=== PATIENT | female | born 1965 | race Caucasian/White ===

== ENCOUNTER 2018-01-29 17:32 | Outpatient (REF) | payer BC, SELFPAY ==
[2018-01-29 22:49] LABS: Absolute Basophil Count 0.03 k/cumm (0.0-0.2); Absolute Eosinophil Count 0.08 k/cumm (0.0-0.7); Absolute Lymphocyte Count 1.62 k/cumm (1.2-3.4); Absolute Monocyte Count 0.41 k/cumm (0.11-0.7); Absolute Neutrophil Count 2.83 k/cumm (1.2-6.7); Basophils % 0.6; Eosinophils % 1.6; HCT 40.7 % (36.0-46.0); HGB 13.8 g/dL (12.0-15.5); Lymphocytes % 32.6; Mean Corp. HGB Concentration 33.9 g/dL (32.0-36.0); Mean Corpuscular Hemoglobin 30.1 pg (27.0-33.0); Mean Corpuscular Volume 88.9 fL (80-95); Mean Platelet Volume 10.7 fL (8.0-11.0); Monocytes % 8.2; Platelet Count 306 x1000/uL (130-400); RBC 4.58 m/cumm (4.00-5.20); RBC Distribution Width 12.2 % (11.7-14.6); White Blood Cell Count 4.97 k/cumm (4.4-10.8)
[2018-01-29 23:02] LABS: ALT 29 U/L (12-78); AST 20 U/L (15-37); Albumin 4.3 g/dL (3.4-5.0); Alkaline Phosphatase 64 U/L (46-116); Anion Gap 8.5 mmol/L (3-11); BUN 15 mg/dL (7-18); Bilirubin, Total 0.4 mg/dL (0.2-1.0); CO2 26.5 mmol/L (21.0-32.0); CREATININE 0.73 mg/dL (0.55-1.02); Calcium 10.2 mg/dL (8.5-10.1); Chloride 103 mmol/L (98-107); Cholesterol 243 mg/dL (50-200); Glucose 83 mg/dL (70-100); HDL Cholesterol 62 mg/dL (40-60); LDL CHOLESTEROL 168 mg/dL (<100); Potassium 3.9 mmol/L (3.5-5.1); Sodium 138 mmol/L (136-145); TSH 1.52 uIU/mL (0.358-3.74); Total Protein 7.3 g/dL (6.4-8.2); Triglyceride 135 mg/dL (30-150)
== END 2018-01-29 17:52 ==
LOC: NCHCN 17:32
PROVIDERS: PCP Family Medicine; Visit Provider Family Medicine
DX: Z00.00 Encounter for general adult medical examination without abnormal findings (principal); R63.5 Abnormal weight gain; M54.2 Cervicalgia; E66.9 Obesity, unspecified
CPT/HCPCS: 80053; 80061; 83721; 84443; 85025

== ENCOUNTER 2020-05-21 14:47 | Outpatient (REF) | payer BC, SELFPAY ==
[2020-05-21 14:54] LABS: Hemoglobin A1C 5.3 % (<5.7)
[2020-05-21 15:14] LABS: Anion Gap 9.6 mmol/L (3-11); BUN 13 mg/dL (7-18); CO2 27.4 mmol/L (21.0-32.0); CREATININE 0.8 mg/dL (0.55-1.02); Calcium 10.7 mg/dL (8.5-10.1); Calculated LDL 174 mg/dL (<100); Chloride 103 mmol/L (98-107); Cholesterol 270 mg/dL (<200); Glucose 83 mg/dL (74-106); HDL Cholesterol 70 mg/dL (40-60); Potassium 4.4 mmol/L (3.5-5.1); Sodium 140 mmol/L (136-145); TSH (W/Ref FT4) 2.26 uIU/mL (0.36-3.74); Triglyceride 131 mg/dL (<150)
== END 2020-05-21 14:48 | disposition home or self-care (01) ==
LOC: NCHCN 14:47
PROVIDERS: PCP Family Medicine; Visit Provider Family Medicine
DX: Z00.00 Encounter for general adult medical examination without abnormal findings (principal); E78.5 Hyperlipidemia, unspecified; E04.2 Nontoxic multinodular goiter; E66.9 Obesity, unspecified
CPT/HCPCS: 80048; 80061; 83036; 84443

== ENCOUNTER 2020-06-01 14:49 | Outpatient (REF) | payer BC, SELFPAY ==
[2020-06-01 13:56] LABS: ALT 28 U/L (14-59); AST 15 U/L (15-37); Albumin 4.2 g/dL (3.4-5.0); Alkaline Phosphatase 75 U/L (46-116); Anion Gap 11.1 mmol/L (3-11); BUN 14 mg/dL (7-18); Bilirubin, Total 0.3 mg/dL (0.2-1.0); CO2 25.9 mmol/L (21.0-32.0); CREATININE 0.7 mg/dL (0.55-1.02); Calcium 10.6 mg/dL (8.5-10.1); Chloride 104 mmol/L (98-107); Glucose 86 mg/dL (74-106); Potassium 4.6 mmol/L (3.5-5.1); Sodium 141 mmol/L (136-145); Total Protein 7.4 g/dL (6.4-8.2)
--- OUTSIDE RECORDS SUMMARY | 2020-06-01 14:51 | XMS_ITS ---
:1965 Author Organization [facility] Address [address] [place] [address], [address] [place] [address] Care Team Providers Name Role Phone Shantell White Unavailable Unavailable PROBLEMS Type Condition ICD9-CM Code [id number] Onset Condition SNOMED Code Code Dates Status Problem Menorrhagia 626.2 Active 10471914 8 Problem Other and 272.4 Active 25534239 unspecified hyperlipidemia Problem Fibroid - 218.9 Active 77338076 unspecified ALLERGIES Substance Reaction Event Type Date Status almonds tingling mouth Non Drug Allergy Mar, Active ENCOUNTERS Encounter Location Date Diagnosis [facility] [address] [place] [address], [address], Gran ulation tissue [address] [place] [address] [facility] [address] [place] [address], [address] [place] [address] [facility] [address] [place] [address], [address] [place] [address] [facility] [address] [place] [address], [address] [place] [address] [facility] [address] [place] [address], [address] [place] [address] [facility] [address] [place] [address], [address], Vagi nal lesion - [address] [place] unspecif ied 623.8 [address] [facility] [address] [place] [address], [address] [place] [address] [facility] [address] [place] [address], [address] [place] [address] [facility] [address] [place] [address], [address] [place] [address] [facility] [address] [place] [address], [address], Othe r and unspecified [address] [place], [place] ovarian cyst 620.2 and [address] Urinary tract in fection, site not specifi ed 599.0 [facility] [address] [place] [address], [address], [address] [place] [address] [facility] [address] [place] [address], [address], Dysu evert 788.1 ; Pelvic pain [address] [place], [place] 625.9 an d Functional cyst [address] 620.2 [facility] [address] [place] [address], [address], [address] [place] [address] [facility] [address] [place] [address], [address] [place] [address] [facility] [address] [place] [address], [address] [place] [address] [facility] [address] [place] [address], [address] [place] [address] [facility] [address] [place] [address], [address] [place] [address] [facility] [address] [place] [address], [address] [place] [address] [facility] [address] [place] [address], [address] [place] [address] [facility] [address] [place] [address], [address] [place] [address] [facility] [address] [place] [address], [address], [address] [place] [address] [facility] [address] [place] [address], [address], [address] [place] [address] [facility] [address] [place] [address], [address], [address] [place] [address] [facility] [address], [place] [address] [facility] [address] [place] [address], [address], Pre- op exam v72.84 ; [address] [place], [place] Fibroid - unspecified 218.9 [address] and Menorrhagia 626.2 [facility] [address] [facility], [address], [address] [place] [address] [facility] [address] [facility], [address] [place] [id number] [facility] [address] [place] [address], [address] [place] [address] [facility] [address] [facility], [address], [address] [place] [address] [facility] [address] [facility], [address], Fibr oid - unspecified 218.9 [address] [place] [address] IMMUNIZATIONS No Known Immunizations SOCIAL HISTORY Qualifiers Date Never Smoker REASON FOR REFERRAL FUNCTIONAL STATUS PLAN OF CARE VITAL SIGNS Temperature 99.4 degrees Fahrenheit 2011-07-04 Height 62.5 in 2011-04-20 Weight 163 lbs 2011-04-20 BMI 29.33 kg/m2 2011-04-20 Blood pressure systolic 120 2012-04-03 Blood pressure diastolic 78 2012-04-03 MEDICATIONS No Known Medications PROCEDURES Procedure Date Ordered Result Body Site Specimen Handling Nov 14, 2011 U/A (urine dipstick in house) June 29, 2011 U/A (urine dipstick in house) June 13, 2011 Surgical Tray Nov 14, 2011 Pelvic U/S limited July 04, 2011 U/A (urine dipstick in house) July 04, 2011 TVUS (non-Ob) July 25, 2011 Specimen Handling July 04, 2011 U/A (urine dipstick in house) July 25, 2011 RESULTS Name Result Date Reference Range Pathology 2011-11-14 Result FINAL Urine Culture and Sensitivity 2011-07-04 REASON FOR VISIT bleeding after intercourse twice in two months, getting sharp RLQ pain intermittently, granulation tissue, CT Scan appt, granulation tissue, granulation tissue, Feeling much better over the past week, feels some dysuria and frequency, but not all the time., symptoms continue, continued UTI sx. Pelvic ultrasound, not enough rx, e 1,o f/u , pt feeling well, still bleeding, pain, bleeding, post op bleeding, still bleeding since nurse's note 06/08; fresh blood on pantiliner and some gushes of blood., urinary frequency, incomplete emptying, feeling crampy, Lower abdominal pain, worse on L side, gush, aching, Post-op visit #2, Still spotting; red blood in addition to brown discharge, has been afebrile, Pulled very small "thread" from incision site; otherwise no pain/irritation, Post Op #1 postTLH, Feels great, surgery was a big relief, feeling better than she thought possible post surgery, followed our instructions for post surgery; has not had significant pain. Incision feels fine, has hadsome gas pains., Took one pain pill the night she got home from the hospital. Still taking Tylenol bid., has been afebrile., Pre op, tomorrow's appt, surgery 04/28/11, Prometrium, referred by Dr. Rivera for surgical consult Insurance Providers [facility] Patient Patient Patient Patient Patient Subscriber Subscriber Subscriber Group Insurance Plan Plan Plan Plan ID Relationship Address Phone Name Date of ID Name Date of No Type Insurance Insurance Insurance Coverage to Subscriber Address Phone Name Dates [employer] [place] [phone] [employer] [place] self Mariela [id number] [address] [place] [address]
[2020-06-02 10:16] LABS: Parathyroid Hormone,Intact 34 pg/mL (19-88)
[2020-06-02 10:46] LABS: Vitamin D 25 Total 18.9 ng/ml (30-100)
== END 2020-06-01 14:50 | disposition home or self-care (01) ==
LOC: NCHCN 14:49
PROVIDERS: PCP Family Medicine; Visit Provider Family Medicine
DX: E83.52 Hypercalcemia (principal)
CPT/HCPCS: 80053; 82306; 83970

== ENCOUNTER 2020-08-06 18:43 | Outpatient (REF) | payer BC, SELFPAY ==
[2020-08-06 21:02] LABS: Anion Gap 8.8 mmol/L (3-11); BUN 11 mg/dL (7-18); CO2 27.2 mmol/L (21.0-32.0); CREATININE 0.8 mg/dL (0.55-1.02); Chloride 106 mmol/L (98-107); Glucose 85 mg/dL (74-106); Potassium 3.9 mmol/L (3.5-5.1); Sodium 142 mmol/L (136-145)
[2020-08-09 04:54] LABS: Vitamin D 25 Total 21.5 ng/mL (30-100)
== END 2020-08-06 18:44 | disposition home or self-care (01) ==
LOC: NCHCN 18:43
PROVIDERS: PCP Family Medicine; Visit Provider Family Medicine
DX: E55.9 Vitamin D deficiency, unspecified (principal); E66.9 Obesity, unspecified
CPT/HCPCS: 80048; 82306

== ENCOUNTER 2021-05-24 18:27 | Outpatient (REF) | payer BC, SELFPAY ==
[2021-05-24 15:32] LABS: Calculated LDL 201 mg/dL (<100); Cholesterol 292 mg/dL (<200); Glucose 93 mg/dL (74-106); HDL Cholesterol 57 mg/dL (40-60); Triglyceride 170 mg/dL (<150)
[2021-05-26 00:51] LABS: Vitamin D 25 Total 27.6 ng/mL (30-100)
== END 2021-05-24 18:28 | disposition home or self-care (01) ==
LOC: NCHCN 18:27
PROVIDERS: PCP Family Medicine; Visit Provider Family Medicine
DX: Z00.00 Encounter for general adult medical examination without abnormal findings (principal); E66.9 Obesity, unspecified; E55.9 Vitamin D deficiency, unspecified
CPT/HCPCS: 80061; 82306; 82947

== ENCOUNTER 2021-11-22 19:57 | Outpatient (REF) | payer BC, SELFPAY ==
[2021-11-22 15:06] LABS: FREE T4 0.89 ng/dL (0.76-1.46); TSH 1.49 uIU/mL (0.36-3.74)
[2021-11-22 15:27] LABS: Calculated LDL 196 mg/dL (<100); Cholesterol 275 mg/dL (<200); HDL Cholesterol 59 mg/dL (40-60); Triglyceride 100 mg/dL (<150)
[2021-11-24 05:14] LABS: Vitamin D 25 Total 28.4 ng/mL (30-100)
== END 2021-11-22 19:58 | disposition home or self-care (01) ==
LOC: NCHCN 19:57
PROVIDERS: PCP Family Medicine; Visit Provider Family Medicine
DX: E55.9 Vitamin D deficiency, unspecified (principal); E78.5 Hyperlipidemia, unspecified; E66.9 Obesity, unspecified
CPT/HCPCS: 80061; 82306; 84439; 84443

== ENCOUNTER 2022-07-25 14:45 | Outpatient (REF) | payer BC, SELFPAY ==
[2022-07-25 16:10] LABS: ALT 43 U/L (14-59); AST 25 U/L (15-37); Albumin 4.3 g/dL (3.4-5.0); Alkaline Phosphatase 61 U/L (46-116); Anion Gap 10.3 mmol/L (3-11); BUN 12 mg/dL (7-18); Bilirubin, Total 0.5 mg/dL (0.2-1.0); CO2 26.7 mmol/L (21.0-32.0); CREATININE 0.9 mg/dL (0.55-1.02); Calcium 10.3 mg/dL (8.5-10.1); Calculated LDL 99 mg/dL (<100); Chloride 104 mmol/L (98-107); Cholesterol 184 mg/dL (<200); Estimated GFR 73.64 (mL/min/1.73m2); Glucose 88 mg/dL (74-106); HDL Cholesterol 58 mg/dL (40-60); Potassium 4.2 mmol/L (3.5-5.1); Sodium 141 mmol/L (136-145); Total Protein 7.7 g/dL (6.4-8.2); Triglyceride 135 mg/dL (<150)
[2022-07-25 17:45] LABS: Vitamin D 25 Total 38.4 ng/mL (30-100)
== END 2022-07-25 14:46 | disposition home or self-care (01) ==
LOC: NCHCN 14:45
PROVIDERS: PCP Family Medicine; Visit Provider Family Medicine
DX: E78.5 Hyperlipidemia, unspecified (principal); E55.9 Vitamin D deficiency, unspecified; R03.0 Elevated blood-pressure reading, without diagnosis of hypertension
CPT/HCPCS: 80053; 80061; 82306

== ENCOUNTER 2022-09-26 15:55 | Outpatient (REF) | payer BC, SELFPAY ==
[2022-09-29 13:06] LABS: Lyme Ab w Rflx to Lyme Confirm Negative (Negative)
== END 2022-09-26 15:56 | disposition home or self-care (01) ==
LOC: NCHCN 15:55
PROVIDERS: PCP Family Medicine; Visit Provider Family Medicine
DX: L50.9 Urticaria, unspecified (principal)
CPT/HCPCS: 87798; 86618

== ENCOUNTER 2022-10-06 18:26 | Outpatient (REF) | payer BC, SELFPAY ==
[2022-10-06 21:24] LABS: TSH (W/Ref FT4) 0.24 uIU/mL (0.36-3.74)
[2022-10-06 21:26] LABS: C-Reactive Protein < 0.05 mg/dL (0.0-0.3)
[2022-10-06 21:42] LABS: FREE T4 0.87 ng/dL (0.76-1.46)
[2022-10-06 21:44] LABS: ESR 4 mm/hr (0-30)
[2022-10-07 21:51] LABS: Rheumatoid Factor <8.6 IU/mL (<12.0)
[2022-10-09 14:44] LABS: ANA Interpretation Positive (Negative)
== END 2022-10-06 18:27 | disposition home or self-care (01) ==
LOC: NCHCN 18:26
PROVIDERS: PCP Family Medicine; Visit Provider Family Medicine
DX: R53.83 Other fatigue (principal); M25.50 Pain in unspecified joint; K58.9 Irritable bowel syndrome, unspecified; R76.0 Raised antibody titer
CPT/HCPCS: 85652; 84439; 84443; 86038; 86140; 86431

== ENCOUNTER 2022-10-20 09:37 | Outpatient (REF) | payer BC, SELFPAY ==
[2022-10-23 13:24] LABS: Smooth Muscle Ab Screen Negative (Negative)
[2022-10-24 12:13] LABS: SS-B (La) Ab, IgG 0.8 Units (<20.0)
[2022-10-24 12:20] LABS: SS-A Antibody 0.8 Units (<20.0)
[2022-10-24 12:32] LABS: dsDNA Ab, IgG <12.3 IU/mL (<30.0)
== END 2022-10-20 09:38 | disposition home or self-care (01) ==
LOC: NCHCN 09:37
PROVIDERS: PCP Family Medicine; Visit Provider Family Medicine
DX: R22.0 Localized swelling, mass and lump, head (principal); R53.83 Other fatigue; L50.8 Other urticaria; R79.89 Other specified abnormal findings of blood chemistry; R76.0 Raised antibody titer
CPT/HCPCS: 86225; 86235; 86255

== ENCOUNTER 2023-05-18 12:03 | Outpatient (REF) | payer BC, SELFPAY ==
[2023-05-18 15:14] LABS: ALT 39 U/L (14-59); AST 21 U/L (15-37); Albumin 4.5 g/dL (3.4-5.0); Alkaline Phosphatase 67 U/L (46-116); Anion Gap 6.7 mmol/L (3-11); BUN 13 mg/dL (7-18); Bilirubin, Total 0.4 mg/dL (0.2-1.0); CO2 28.3 mmol/L (21.0-32.0); CREATININE 0.8 mg/dL (0.55-1.02); Calcium 10.7 mg/dL (8.5-10.1); Calculated LDL 102 mg/dL (<100); Chloride 106 mmol/L (98-107); Cholesterol 175 mg/dL (<200); Glucose 96 mg/dL (74-106); HDL Cholesterol 59 mg/dL (40-60); Potassium 4.3 mmol/L (3.5-5.1); Sodium 141 mmol/L (136-145); TSH (W/Ref FT4) 1.91 uIU/mL (0.36-3.74); Total Protein 7.7 g/dL (6.4-8.2); Triglyceride 74 mg/dL (<150)
== END 2023-05-18 12:04 | disposition home or self-care (01) ==
LOC: NCHCN 12:03
PROVIDERS: PCP Family Medicine; Referring Provider Family Medicine; Visit Provider Family Medicine
DX: R79.89 Other specified abnormal findings of blood chemistry (principal)
CPT/HCPCS: 80053; 80061; 84443

== ENCOUNTER 2023-05-25 09:45 | Outpatient (REF) | payer BC, SELFPAY ==
[2023-05-25 14:48] LABS: FREE T4 0.88 ng/dL (0.76-1.46)
[2023-05-25 15:08] LABS: Vitamin D 25 Total 29.7 ng/mL (30-100)
[2023-05-25 22:14] LABS: Thyroperoxidase Antibody <28 U/mL (<=60)
[2023-05-25 22:16] LABS: Parathyroid Hormone,Intact 63 pg/mL (19-88)
[2023-05-25 22:21] LABS: Thyroglobulin Antibody <15 U/mL (<=60)
[2023-05-28 12:44] LABS: Thyrotropin Receptor Ab <1.10 IU/L
== END 2023-05-25 09:46 | disposition home or self-care (01) ==
LOC: NCHCN 09:45
PROVIDERS: PCP Family Medicine; Visit Provider Family Medicine
DX: E04.2 Nontoxic multinodular goiter (principal); E83.52 Hypercalcemia; E55.9 Vitamin D deficiency, unspecified
CPT/HCPCS: 82306; 83970; 84235; 84439; 86376; 86800

== ENCOUNTER 2023-11-20 16:38 | Outpatient (REF) | payer BC, SELFPAY ==
[2023-11-20 22:06] LABS: Anion Gap 8.2 mmol/L (3-11); BUN 14 mg/dL (7-18); CO2 27.8 mmol/L (21.0-32.0); CREATININE 0.8 mg/dL (0.55-1.02); Calcium 10.6 mg/dL (8.5-10.1); Chloride 104 mmol/L (98-107); Glucose 98 mg/dL (74-106); Potassium 4.6 mmol/L (3.5-5.1); Sodium 140 mmol/L (136-145); Vitamin D 25 Total 29.7 ng/mL (30-100)
== END 2023-11-20 16:39 | disposition home or self-care (01) ==
LOC: NCHCN 16:38
PROVIDERS: PCP Family Medicine; Visit Provider Family Medicine
DX: E55.9 Vitamin D deficiency, unspecified (principal); E83.52 Hypercalcemia
CPT/HCPCS: 80048; 82306

== ENCOUNTER 2023-11-30 14:55 | Outpatient (REF) | payer BC, SELFPAY ==
[2023-12-03 09:14] LABS: Parathyroid Hormone,Intact 54 pg/mL (19-88)
[2023-12-03 11:46] LABS: IgA 161 mg/dL (85-499); Interpretation (See Note); Tissue Transglutaminase IgA <4.0 CU (<20.0)
== END 2023-11-30 14:56 | disposition home or self-care (01) ==
LOC: NCHCN 14:55
PROVIDERS: PCP Family Medicine; Visit Provider Family Medicine
DX: R10.9 Unspecified abdominal pain (principal)
CPT/HCPCS: 82784; 83516; 83970

== ENCOUNTER 2024-05-20 10:14 | Outpatient (REF) | payer BC, SELFPAY ==
[2024-05-20 14:56] LABS: ALT 29 U/L (14-59); AST 15 U/L (15-37); Albumin 4.2 g/dL (3.4-5.0); Alkaline Phosphatase 68 U/L (46-116); Anion Gap 8.7 mmol/L (3-11); BUN 20 mg/dL (7-18); Bilirubin, Total 0.4 mg/dL (0.2-1.0); CO2 27.3 mmol/L (21.0-32.0); CREATININE 0.9 mg/dL (0.55-1.02); Calcium 10.3 mg/dL (8.5-10.1); Calculated LDL 209 mg/dL (<100); Chloride 105 mmol/L (98-107); Cholesterol 312 mg/dL (<200); Estimated GFR 72.73 (mL/min/1.73m2); Glucose 102 mg/dL (74-106); HDL Cholesterol 60 mg/dL (>or=50); Potassium 4.1 mmol/L (3.5-5.1); Sodium 141 mmol/L (136-145); TSH 2.02 uIU/mL (0.36-3.74); Total Protein 7.4 g/dL (6.4-8.2); Triglyceride 217 mg/dL (<150); Vitamin D 25 Total 31 ng/mL (30-100)
== END 2024-05-20 10:15 | disposition home or self-care (01) ==
LOC: NCHCN 10:14
PROVIDERS: PCP Family Medicine; Visit Provider Family Medicine
DX: E55.9 Vitamin D deficiency, unspecified (principal); E83.52 Hypercalcemia; E05.90 Thyrotoxicosis, unspecified without thyrotoxic crisis or storm; E78.5 Hyperlipidemia, unspecified; R03.0 Elevated blood-pressure reading, without diagnosis of hypertension
CPT/HCPCS: 80053; 80061; 82306; 84443